=== PATIENT | male | born 1950 | race Two or more races ===

== ENCOUNTER 2016-09-08 08:54 | Inpatient (IN) | payer OTHER ==
[~2016-09-08] VITALS: Ht 170.2 cm; Wt 71.0 kg
[~2016-09-08 08:54] MED LIST: CALCIUM 600 +1 EAC4 PO; EFFEXOR XR150 MG PO; ELIQUIS5 MG PO; FERROUS SULFAT325 MG PO; FLOMAX0.4 MG PO; GLIPIZIDE5 MG PO; GLUCOSAMINE1000 MG PO; LO-DOSE ASPIRIN81 M2 PO; METFORMIN HCL1000 MG PO; METFORMIN HCL500 MG PO; NOVOLOG MI100 UNIT/M SC; ONE DAILY1 EAC3 PO; PERCOCET 10/1 TABLET PO; TYLENOL EXTRA500 MG PO
[2016-09-08 13:05] VITALS: BP 114/67
[2016-09-08 13:08] LABS: POINT-OF-CARE METER ID UU14174212
[2016-09-08 20:01] VITALS: BP 126/69
[2016-09-08 23:27] VITALS: BP 110/62
[2016-09-09 04:00] VITALS: BP 103/58
[2016-09-09 07:12] VITALS: BP 114/60
[2016-09-09] MEDS ORDERED: HYDROCODON-ACE1 EAC7 PO (09:01)
[2016-09-09 12:09] LABS: POINT-OF-CARE METER ID UU13113712
[2016-09-09 15:24] VITALS: BP 123/59
[2016-09-09 19:41] VITALS: BP 126/60
== END 2016-09-09 20:24 | disposition home or self-care (01) | DRG 482 ==
LOC: 2SOUTH 08:54 → 3EAST 11:08 → 2SOUTH 11:08 → 3EAST 19:22
PROVIDERS: Orthopaedic Surgery
PROC: 0SP904Z Removal of Internal Fixation Device from Right Hip Joint, Open Approach (ICD-10-PCS; principal; 2016-09-08)
DX: S72.141G Displaced intertrochanteric fracture of right femur, subsequent encounter for closed fracture with delayed healing (principal); E11.9 Type 2 diabetes mellitus without complications; N40.0 Benign prostatic hyperplasia without lower urinary tract symptoms; Z79.4 Long term (current) use of insulin; Z86.718 Personal history of other venous thrombosis and embolism
CPT/HCPCS: 71020; 73501; 73502; 76000; 82948; 86850; 86900; 86901; 86920; J0330; J0690; J1100; J1650; J1815; J2405; J3010; J7030; J7050